=== PATIENT | male | born 1945 | race Caucasian/White ===

== ENCOUNTER 2018-08-29 10:57 | Emergency (ER) | payer OTHER, SELFPAY ==
[2018-08-29] VITALS (8 sets, daily range): BP systolic 139–185; BP diastolic 73–104; PULSE 58–69; RESP 13–20; TEMP 36.8; O2SAT 83–98; BMI 29.5
--- NOTE | 2018-08-29 11:29 | DI.RAD.S_ITS ---
PROCEDURE: XR CHEST 1V INDICATIONS: chest pain TECHNIQUE: One view of the chest was acquired. COMPARISON: None. FINDINGS: Surgical changes and devices: Status post CABG procedure.. Lungs and pleura: No pleural effusions or pneumothorax. Lungs are clear. Mediastinum: Mediastinal contours appear normal. Heart size is normal. Bones and chest wall: No suspicious bony lesions. Overlying soft tissues appear unremarkable. IMPRESSION: No acute cardiopulmonary disease process. Dictated by: Iliana Ryan MD, PhD on 08/29/2018 at 13:20 Approved by: Iliana Ryan MD, PhD on 08/29/2018 at 13:20
[2018-08-29 11:38] LABS: Add Manual Diff / Slide Review NO; Basophils Percent Auto 0.9 % (0-2); Eosinophils Percent Auto 4.6 % (2-4); Hematocrit 46.3 % (41-53); Hemoglobin 16.7 g/dL (13.5-17.5); INR 1.1 (0.9-1.3); Lymphocytes Percent Auto 23.5 % (25-40); Mean Corpuscular Hemoglobin 33.3 PG (26-34); Mean Corpuscular Volume 92.5 fL (80-100); Monocytes Percent Auto 10.4 % (3-14); Neutrophils Absolute Auto 5000 /uL (3000-5900); Neutrophils Percent Auto 60.6 % (50-75); Platelet Count 270 X10^3/uL (150-400); Prothrombin Time 11.7 SECONDS (10.1-12.7); Red Blood Cell Count 5.01 X10^6/uL (4.5-5.9); Red Cell Distribution Width 13.8 % (11.6-14.8); White Blood Cell Count 8.2 X10^3/uL (4.5-11.0)
--- NOTE | 2018-08-29 11:38 | ED.CHESTPAIN ---
HPI - Chest Pain General Chief Complaint: Chest Pain Stated Complaint: CHEST PAIN Time Seen by Provider: 08/29/18 11:22 Source: patient and family Mode of arrival: ambulatory Limitations: no limitations History of Present Illness HPI narrative: This is a 73-year-old male that comes to the emergency department with complaint of chest pain. Patient states he has been having symptoms for for 5 days. He states that it is when he is moving around. If he lays flat on the bed he does not have any symptoms but even sitting up causes some pain. Walking around or moving also causes discomfort. He states it started more in the left breast and he thought it was more muscular and sort of moved to his back and now it is in the center of his chest today. He saw a chiropractor yesterday which did not improve his symptoms. He denies any nausea or vomiting. He states he felt maybe a little short of breath but that that might also been Um diet he about the fact that he was having chest pain. Has not been continuous or clearly linked with the chest pain. He denies any worsening with exertion. He denies any diarrhea or constipation he has had indigestion. He has felt a little dizzy, no syncope or lightheadedness. It is currently not present and seems to change throughout the day. He has had history of 2 vessel CABG, he takes medication for blood pressure and cholesterol. He use to have gout but quit after stopping alcohol 8 or 9 months ago. He does not have a history of diabetes. He does not smoke tobacco. He has had his appendix as well as a cholecystectomy, a takes an aspirin 81 mg daily. He occasionally uses at double THC but does not smoke. Dr. Solorio is his PCP. Related Data Home Medications Medication Instructions Recorded Confirmed aspirin 81 mg PO BEDTIME 08/29/18 08/29/18 atorvastatin 40 mg PO BEDTIME 08/29/18 08/29/18 metoprolol succinate 50 mg PO BEDTIME 08/29/18 08/29/18 Allergies Allergy/AdvReac Type Severity Reaction Status Date / Time No Known Drug Allergies Allergy Verified 08/29/18 11:26 Review of Systems Review of Systems All systems reviewed & are unremarkable except as noted in HPI and below Constitutional Denies fatigue and Denies fever(s) ENT Ears, Nose, Mouth, and Throat: Denies change in voice, Denies nasal congestion, Denies neck pain and Denies sore throat Cardiovascular Reports chest pain, Reports chest pain with activity, Denies diaphoresis, Denies syncope, Denies rapid heart rate, Denies pedal edema, Denies irregular heart rhythm, Denies leg edema, Denies lightheadedness, Denies radiating jaw, neck or arm pain, Denies palpitations, Reports dyspnea, Denies dyspnea on exertion and Denies orthopnea Respiratory Denies chest congestion, Denies cough, Reports dyspnea, Denies dyspnea on exertion and Denies wheezing Gastrointestinal Gastrointestinal: Denies abdominal pain, Denies change in bowel habits, Denies constipation, Denies diarrhea, Denies nausea and Denies vomiting Genitourinary Denies difficulty urinating Musculoskeletal Denies neck pain Integumentary/Breasts Denies rash Neurologic Denies syncope Endocrine Denies fatigue and Denies palpitations Allergic/Immunologic Denies wheezing PFSH Medical History Dyslipidemia (Chronic) Gout (Chronic) Hypertension (Chronic) Surgical History History of cholecystectomy (Chronic) Hx of appendectomy (Chronic) S/P CABG (coronary artery bypass graft) (Chronic) Social History Smoking Status: Former smoker Exam Narrative Exam Narrative: GENERAL: Alert and oriented x three, well-nourished, well-appearing male in no acute distress. HEENT: Head normocephalic, atraumatic, EOMI, pupils reactive, face symmetric, moist mucous membranes NECK: Supple, full range of motion CARDIOVASCULAR: Regular rate and rhythm without murmurs, rubs or gallops. No pedal edema bilaterally. Unable to reproduce chest pain with palpation. RESPIRATORY: Breath sounds equal bilaterally, no wheezes rales or rhonchi. Speaks in full sentences, no accessory muscle use. Patient does not have any rash or skin color changes on his anterior chest. ABDOMEN: Soft, nontender. Normoactive bowel sounds all 4 quadrants. No guarding or rebound, rigidity, no mass : No CVA tenderness EXTREMITIES: Normal range of motion, no clubbing or edema. Neurovascularly intact NEUROLOGICAL: Cranial nerves II through XII grossly intact. Moving all extremities SKIN: Warm, dry, no petechiae, no rashes or lesions. Initial Vital Signs Initial Vital Signs: Vital Signs Temperature 98.3 F 08/29/18 11:21 Pulse Rate 69 08/29/18 11:21 Respiratory Rate 15 08/29/18 11:21 Blood Pressure 185/104 H 08/29/18 11:21 Pulse Oximetry 96 08/29/18 11:21 Scores HEART Score Heart Score history: Slightly Suspicious Heart Score EKG: Non-Specific repolarization disturbance Heart Score Age: > or = 65 years old Heart Score risk factors: > 3 risk factors or hx of atherosclerotic disease Heart Score troponin: < or = to normal limit Heart Score Total: 5 Course Orders Ordered: ED Orders 08/29/18 11:03 EKG-12 Lead Routine 08/29/18 11:12 B Type Natriuretic Peptide Stat Complete Blood Count AUTO DIFF Stat Comprehensive Metabolic Panel Stat D Dimer Stat Lipase Stat Partial Thromboplastin Time Stat Prothrombin Time INR Stat Troponin & CK Cardiac Panel Stat 08/29/18 11:29 XR chest 1V Stat 08/29/18 13:36 Education, smoking cessation ONGOING 08/29/18 14:36 Troponin & CK Cardiac Panel Q8H Aspirin (Aspirin) 325 mg PO DAILY [facility] Enoxaparin Sodium (Lovenox) 40 mg SUBCUT DAILY [facility] Sodium Chloride (Normal Saline 0.9%) 1,000 mls @ 150 mls/hr IV CONT NNAMDI Last Admin: 08/29/18 11:53 Dose: 150 mls/hr Lisinopril (Zestril) 5 mg PO DAILY [facility] Metoprolol Succinate (Toprol Xl) 50 mg PO BEDTIME NNAMDI Nitroglycerin (Nitro-Bid) 0.75 inch TOP Q8HR NNAMDI Ondansetron HCl (Zofran Odt) 4 mg PO Q8HR PRN PRN Reason: Nausea And Vomiting Discontinued Medications Aspirin (Aspirin Chew) 324 mg PO NOW ONE Stop: 08/29/18 11:30 Last Admin: 08/29/18 11:53 Dose: 324 mg Reevaluation(s) Reevaluation #1: Recheck after labs and chest xray-continues to be asymptomatic. Patient and I discussed labs and imaging findings. EKG has nonspecific changes. Consultations Consultation #1: Dr. Matthews, accepts for chest pain obs. Tele. Time: 13:34 Vital Signs - 8 hr 08/29/18 11:21 08/29/18 12:00 08/29/18 12:30 Temperature 98.3 F Pulse Rate 69 64 66 Respiratory Rate 15 20 18 Blood Pressure 185/104 H Blood Pressure [Right Arm] 150/74 H 150/83 H Pulse Oximetry 96 95 97 08/29/18 13:00 08/29/18 13:30 08/29/18 14:03 Temperature Pulse Rate 61 60 58 L Respiratory Rate 13 15 16 Blood Pressure Blood Pressure [Right Arm] 139/76 159/83 H 165/78 H Pulse Oximetry 95 83 L 97 08/29/18 14:31 08/29/18 15:00 Temperature Pulse Rate 65 59 L Respiratory Rate 14 14 Blood Pressure Blood Pressure [Right Arm] 168/84 H 159/73 H Pulse Oximetry 97 98 MDM - Chest Pain Lab Data Attestation: I reviewed the patient's lab results. Result diagrams: 08/29/18 11:12 08/29/18 11:12 Lab Results 08/29/18 08/29/18 08/29/18 Range/Units 11:12 11:12 11:12 WBC 8.2 (4.5-11.0) X10^3/uL RBC 5.01 (4.5-5.9) X10^6/uL Hgb 16.7 (13.5-17.5) g/dL Hct 46.3 (41-53) % MCV 92.5 (80-100) fL MCH 33.3 (26-34) PG MCHC 36.0 (30-36) % RDW 13.8 (11.6-14.8) % Plt Count 270 (150-400) X10^3/uL Neut % (Auto) 60.6 (50-75) % Lymph % (Auto) 23.5 L (25-40) % [place] % (Auto) 10.4 (3-14) % Eos % (Auto) 4.6 H (2-4) % Baso % (Auto) 0.9 (0-2) % Neut # (Auto) 5000 (5268-4304) /uL PT 11.7 (10.1-12.7) SECONDS INR 1.1 (0.9-1.3) APTT 30 (26.4-36.2) SECONDS D-Dimer < 200 (<230) ng/mL Sodium 144 (137-145) mmol/L Potassium 4.1 (3.4-5.1) mmol/L Chloride 107 (98-107) mmol/L Carbon Dioxide 25 (22-32) mmol/L BUN 12 (9-20) mg/dL Creatinine 0.90 (0.66-1.25) mg/dL Estimated GFR > 60.0 (>60) mL/min BUN/Creatinine Ratio 13.3 (6-22) Glucose 109 (80-110) mg/dL Calcium 9.4 (8.4-10.2) mg/dL Total Bilirubin 1.1 (0.2-1.3) mg/dL AST 32 (17-59) IU/L ALT 43 (21-72) IU/L Alkaline Phosphatase 64 (38-126) U/L Total Creatine Kinase 54 L (55-170) U/L CK-MB (CK-2) TNP CK-MB (CK-2) Rel Index TNP Troponin I < 0.012 (0.01-0.034) ng/mL B-Natriuretic Peptide < 29.4 (<100) Total Protein 7.3 (6.3-8.2) g/dL Albumin 4.5 (3.5-5.0) g/dL Globulin 2.8 (1.7-4.1) g/dL Albumin/Globulin Ratio 1.6 (1.0-2.8) Lipase 77 (23-300) U/L 08/29/18 Range/Units 14:36 WBC (4.5-11.0) X10^3/uL RBC (4.5-5.9) X10^6/uL Hgb (13.5-17.5) g/dL Hct (41-53) % MCV (80-100) fL MCH (26-34) PG MCHC (30-36) % RDW (11.6-14.8) % Plt Count (150-400) X10^3/uL Neut % (Auto) (50-75) % Lymph % (Auto) (25-40) % [place] % (Auto) (3-14) % Eos % (Auto) (2-4) % Baso % (Auto) (0-2) % Neut # (Auto) (4064-1156) /uL PT (10.1-12.7) SECONDS INR (0.9-1.3) APTT (26.4-36.2) SECONDS D-Dimer (<230) ng/mL Sodium (137-145) mmol/L Potassium (3.4-5.1) mmol/L Chloride (98-107) mmol/L Carbon Dioxide (22-32) mmol/L BUN (9-20) mg/dL Creatinine (0.66-1.25) mg/dL Estimated GFR (>60) mL/min BUN/Creatinine Ratio (6-22) Glucose (80-110) mg/dL Calcium (8.4-10.2) mg/dL Total Bilirubin (0.2-1.3) mg/dL AST (17-59) IU/L ALT (21-72) IU/L Alkaline Phosphatase (38-126) U/L Total Creatine Kinase 48 L (55-170) U/L CK-MB (CK-2) TNP CK-MB (CK-2) Rel Index TNP Troponin I < 0.012 (0.01-0.034) ng/mL B-Natriuretic Peptide (<100) Total Protein (6.3-8.2) g/dL Albumin (3.5-5.0) g/dL Globulin (1.7-4.1) g/dL Albumin/Globulin Ratio (1.0-2.8) Lipase (23-300) U/L Urine Dip Bedside Urine Glucose Negative Bedside Urine Bilirubin - Negative Bedside Urine Ketone - Negative Urine Specific [place] 1.015 Bedside Urine Occult Blood - Negative Bedside Urine pH 6.0 Bedside Urine Protein - Negative Bedside Urine Urobilinogen - Negative Bedside Urine Nitrite - Negative Bedside Urine Leukocytes - Negative Esterase Imaging Data Chest x-ray: Radiologist's impression: [address] [id number] XRay Report Signed Patient: Javan Antoine BMR#: [id number] : 5Acct:[id number] Age/Sex: 73 / MDate of Service: 08/29/18 Loc: ED Accession Number: [id number] Procedure: XR chest 1V Ordering Provider: Britta Ndiaye D.O. PROCEDURE: XR CHEST 1V INDICATIONS: chest pain TECHNIQUE: One view of the chest was acquired. COMPARISON: None. FINDINGS: Surgical changes and devices: Status post CABG procedure.. Lungs and pleura: No pleural effusions or pneumothorax. Lungs are clear. Mediastinum: Mediastinal contours appear normal. Heart size is normal. Bones and chest wall: No suspicious bony lesions. Overlying soft tissues appear unremarkable. IMPRESSION: No acute cardiopulmonary disease process. Dictated by: Iliana Ryan MD, PhD on 08/29/2018 at 13:20 Approved by: Iliana Ryan MD, PhD on 08/29/2018 at 13:20 ECG Data Attestation: I personally reviewed and interpreted this ECG as follows: Prior ECG tracings: not available for review Interpretation: Sinus rhythm with a rate of 63, [place] 203, QRS of 107 and a QTC of 385. Patient has Q-waves [address] change. No ST elevation is appreciated. No prior EKGs are available EKG #2, sinus bradycardia with a sinus arrhythmia with a rate of 59, P are of 205, QRS of 105 and QTC of 407. Q-wave in [address] change consistent with prior EKG from this morning. MDM Narrative Medical decision making narrative: After further discussion with patient his chest pain seems to present after walking around the house for a period of time or exerting himself. It does not occur if he is moving his arms or when calling his chest. With his cardiac history it does sound somewhat consistent with stable angina. If he rests it resolves, but it does not seem to, if he is resting on the bed or is not participating in any activity. Spoke with Dr. Matthews about the chest pain observation for this patient and he accepts with plan for a [address] Matthews, updated. He also recommends f/u with PCP. And potentially lisinopril and imdur for home. Patient and I discussed that I don't recommend return home, he is open to doing 2nd troponin prior to d/c and will call pcp today to set up stress test at beginning of the week. Discussed risks/benefits. Repeat troponin is negative. Patient will call pcp today to set up follow up Saturday. Recommended to return to ED if recurrent symptoms. We also discussed possible rx for home for better BP control and nitro but patient defers. Discharge Plan Departure Patient Disposition: Home Clinical Impression: Chest pain Discharge Date/Time: 08/29/18 15:37 Interventions: ED Discharge Assessment Last Done: 08/29/18 15:37 Instructions: DI for Chest Pain Activity Restrictions/Additional Instructions: I do recommend observation for further evaluation but since your returning home make sure that you follow up for re-evaluation and stress test on Saturday. Call today to set up follow up with your primary care physician. Your blood pressure was also elevated here in the emergency department today, also discussed this with your primary care physician. Continue your aspirin daily. Return to the emergency department for worsening symptoms, new chest pain, new shortness of breath, new weakness or dizziness or passing out or other new or concerning symptoms. Prescriptions: No Action aspirin 81 mg Tablet,Delayed Release (Dr/Ec) 81 mg PO BEDTIME RF: 0 metoprolol succinate 50 MG tablet extended release 24 hr 50 mg PO BEDTIME RF: 0 atorvastatin 40 MG tablet 40 mg PO BEDTIME RF: 0 Referrals: Laurence Brenner PA-C [Primary Care Provider] - Jon Solorio MD [Non-Staff] -
[2018-08-29 11:41] LABS: PTT Partial Thromboplastin Tim 30 SECONDS (26.4-36.2)
[2018-08-29 11:43] LABS: Alanine Aminotransferase 43 IU/L (21-72); Albumin 4.5 g/dL (3.5-5.0); Albumin Globulin Ratio 1.6 (1.0-2.8); Alkaline Phosphatase 64 U/L (38-126); Aspartate Aminotransferase 32 IU/L (17-59); BUN Creatinine Ratio 13.3 (6-22); Bilirubin Total 1.1 mg/dL (0.2-1.3); Blood Urea Nitrogen 12 mg/dL (9-20); Calcium 9.4 mg/dL (8.4-10.2); Carbon Dioxide 25 mmol/L (22-32); Chloride 107 mmol/L (98-107); Creatine Kinase 54 U/L (55-170); Estimated Glomerular Filt Rate > 60.0 mL/min (>60); Globulin 2.8 g/dL (1.7-4.1); Glucose 109 mg/dL (80-110); HEMOLYSIS < 15 (0-50); Lipase 77 U/L (23-300); Potassium 4.1 mmol/L (3.4-5.1); Sodium 144 mmol/L (137-145); Total Protein 7.3 g/dL (6.3-8.2)
--- NOTE | 2018-08-29 11:44 | ED_ITS ---
HPI - Chest Pain General Chief Complaint: Chest Pain Stated Complaint: CHEST PAIN Time Seen by Provider: 08/29/18 11:22 Source: patient and family Mode of arrival: ambulatory Limitations: no limitations History of Present Illness HPI narrative: This is a 73-year-old male that comes to the emergency department with complaint of chest pain. Patient states he has been having symptoms for for 5 days. He states that it is when he is moving around. If he lays flat on the bed he does not have any symptoms but even sitting up causes some pain. Walking around or moving also causes discomfort. He states it started more in the left breast and he thought it was more muscular and sort of moved to his back and now it is in the center of his chest today. He saw a chiropractor yesterday which did not improve his symptoms. He denies any nausea or vomiting. He states he felt maybe a little short of breath but that that might also been Um diet he about the fact that he was having chest pain. Has not been continuous or clearly linked with the chest pain. He denies any worsening with exertion. He denies any diarrhea or constipation he has had indigestion. He has felt a little dizzy, no syncope or lightheadedness. It is currently not present and seems to change throughout the day. He has had history of 2 vessel CABG, he takes medication for blood pressure and cholesterol. He use to have gout but quit after stopping alcohol 8 or 9 months ago. He does not have a history of diabetes. He does not smoke tobacco. He has had his appendix as well as a cholecystectomy, a takes an aspirin 81 mg daily. He occasionally uses at double THC but does not smoke. Dr. Solorio is his PCP. Related Data Home Medications Medication Instructions Recorded Confirmed aspirin 81 mg PO BEDTIME 08/29/18 08/29/18 atorvastatin 40 mg PO BEDTIME 08/29/18 08/29/18 metoprolol succinate 50 mg PO BEDTIME 08/29/18 08/29/18 Allergies Allergy/AdvReac Type Severity Reaction Status Date / Time No Known Drug Allergies Allergy Verified 08/29/18 11:26 Review of Systems Review of Systems All systems reviewed & are unremarkable except as noted in HPI and below Constitutional Denies fatigue and Denies fever(s) ENT Ears, Nose, Mouth, and Throat: Denies change in voice, Denies nasal congestion, Denies neck pain and Denies sore throat Cardiovascular Reports chest pain, Reports chest pain with activity, Denies diaphoresis, Denies syncope, Denies rapid heart rate, Denies pedal edema, Denies irregular heart rhythm, Denies leg edema, Denies lightheadedness, Denies radiating jaw, neck or arm pain, Denies palpitations, Reports dyspnea, Denies dyspnea on exertion and Denies orthopnea Respiratory Denies chest congestion, Denies cough, Reports dyspnea, Denies dyspnea on exertion and Denies wheezing Gastrointestinal Gastrointestinal: Denies abdominal pain, Denies change in bowel habits, Denies constipation, Denies diarrhea, Denies nausea and Denies vomiting Genitourinary Denies difficulty urinating Musculoskeletal Denies neck pain Integumentary/Breasts Denies rash Neurologic Denies syncope Endocrine Denies fatigue and Denies palpitations Allergic/Immunologic Denies wheezing PFSH Medical History Dyslipidemia (Chronic) Gout (Chronic) Hypertension (Chronic) Surgical History History of cholecystectomy (Chronic) Hx of appendectomy (Chronic) S/P CABG (coronary artery bypass graft) (Chronic) Social History Smoking Status: Former smoker Exam Narrative Exam Narrative: GENERAL: Alert and oriented x three, well-nourished, well- appearing male in no acute distress. HEENT: Head normocephalic, atraumatic, EOMI, pupils reactive, face symmetric, moist mucous membranes NECK: Supple, full range of motion CARDIOVASCULAR: Regular rate and rhythm without murmurs, rubs or gallops. No pedal edema bilaterally. Unable to reproduce chest pain with palpation. RESPIRATORY: Breath sounds equal bilaterally, no wheezes rales or rhonchi. Speaks in full sentences, no accessory muscle use. Patient does not have any rash or skin color changes on his anterior chest. ABDOMEN: Soft, nontender. Normoactive bowel sounds all 4 quadrants. No guarding or rebound, rigidity, no mass : No CVA tenderness EXTREMITIES: Normal range of motion, no clubbing or edema. Neurovascularly intact NEUROLOGICAL: Cranial nerves II through XII grossly intact. Moving all extremities SKIN: Warm, dry, no petechiae, no rashes or lesions. Initial Vital Signs Initial Vital Signs: Vital Signs Temperature 98.3 F 08/29/18 11:21 Pulse Rate 69 08/29/18 11:21 Respiratory Rate 15 08/29/18 11:21 Blood Pressure 185/104 H 08/29/18 11:21 Pulse Oximetry 96 08/29/18 11:21 Scores HEART Score Heart Score history: Slightly Suspicious Heart Score EKG: Non-Specific repolarization disturbance Heart Score Age: > or = 65 years old Heart Score risk factors: > 3 risk factors or hx of atherosclerotic disease Heart Score troponin: < or = to normal limit Heart Score Total: 5 Course Orders Ordered: ED Orders 08/29/18 11:03 EKG-12 Lead Routine 08/29/18 11:12 B Type Natriuretic Peptide Stat Complete Blood Count AUTO DIFF Stat Comprehensive Metabolic Panel Stat D Dimer Stat Lipase Stat Partial Thromboplastin Time Stat Prothrombin Time INR Stat Troponin & CK Cardiac Panel Stat 08/29/18 11:29 XR chest 1V Stat 08/29/18 13:36 Education, smoking cessation ONGOING 08/29/18 14:36 Troponin & CK Cardiac Panel Q8H Aspirin (Aspirin) 325 mg PO DAILY [facility] Enoxaparin Sodium (Lovenox) 40 mg SUBCUT DAILY [facility] Sodium Chloride (Normal Saline 0.9%) 1,000 mls @ 150 mls/hr IV CONT NNAMDI Last Admin: 08/29/18 11:53 Dose: 150 mls/hr Lisinopril (Zestril) 5 mg PO DAILY [facility] Metoprolol Succinate (Toprol Xl) 50 mg PO BEDTIME NNAMDI Nitroglycerin (Nitro-Bid) 0.75 inch TOP Q8HR NNAMDI Ondansetron HCl (Zofran Odt) 4 mg PO Q8HR PRN PRN Reason: Nausea And Vomiting Discontinued Medications Aspirin (Aspirin Chew) 324 mg PO NOW ONE Stop: 08/29/18 11:30 Last Admin: 08/29/18 11:53 Dose: 324 mg Reevaluation(s) Reevaluation #1: Recheck after labs and chest xray-continues to be asymptomatic. Patient and I discussed labs and imaging findings. EKG has nonspecific changes. Consultations Consultation #1: Dr. Matthews, accepts for chest pain obs. Tele. Time: 13:34 Vital Signs - 8 hr 08/29/18 11:21 08/29/18 12:00 08/29/18 12:30 Temperature 98.3 F Pulse Rate 69 64 66 Respiratory Rate 15 20 18 Blood Pressure 185/104 H Blood Pressure [Right Arm] 150/74 H 150/83 H Pulse Oximetry 96 95 97 08/29/18 13:00 08/29/18 13:30 08/29/18 14:03 Temperature Pulse Rate 61 60 58 L Respiratory Rate 13 15 16 Blood Pressure Blood Pressure [Right Arm] 139/76 159/83 H 165/78 H Pulse Oximetry 95 83 L 97 08/29/18 14:31 08/29/18 15:00 Temperature Pulse Rate 65 59 L Respiratory Rate 14 14 Blood Pressure Blood Pressure [Right Arm] 168/84 H 159/73 H Pulse Oximetry 97 98 MDM - Chest Pain Lab Data Attestation: I reviewed the patient's lab results. Result diagrams: 08/29/18 11:12 08/29/18 11:12 Lab Results 08/29/18 08/29/18 08/29/18 Range/Units 11:12 11:12 11:12 WBC 8.2 (4.5-11.0) X10^3/uL RBC 5.01 (4.5-5.9) X10^6/uL Hgb 16.7 (13.5-17.5) g/dL Hct 46.3 (41-53) % MCV 92.5 (80-100) fL MCH 33.3 (26-34) PG MCHC 36.0 (30-36) % RDW 13.8 (11.6-14.8) % Plt Count 270 (150-400) X10^3/uL Neut % (Auto) 60.6 (50-75) % Lymph % (Auto) 23.5 L (25-40) % [place] % (Auto) 10.4 (3-14) % Eos % (Auto) 4.6 H (2-4) % Baso % (Auto) 0.9 (0-2) % Neut # (Auto) 5000 (9362-1064) /uL PT 11.7 (10.1-12.7) SECONDS INR 1.1 (0.9-1.3) APTT 30 (26.4-36.2) SECONDS D-Dimer < 200 (<230) ng/mL Sodium 144 (137-145) mmol/L Potassium 4.1 (3.4-5.1) mmol/L Chloride 107 (98-107) mmol/L Carbon Dioxide 25 (22-32) mmol/L BUN 12 (9-20) mg/dL Creatinine 0.90 (0.66-1.25) mg/dL Estimated GFR > 60.0 (>60) mL/min BUN/Creatinine Ratio 13.3 (6-22) Glucose 109 (80-110) mg/dL Calcium 9.4 (8.4-10.2) mg/dL Total Bilirubin 1.1 (0.2-1.3) mg/dL AST 32 (17-59) IU/L ALT 43 (21-72) IU/L Alkaline Phosphatase 64 (38-126) U/L Total Creatine Kinase 54 L (55-170) U/L CK-MB (CK-2) TNP CK-MB (CK-2) Rel Index TNP Troponin I < 0.012 (0.01-0.034) ng/mL B-Natriuretic Peptide < 29.4 (<100) Total Protein 7.3 (6.3-8.2) g/dL Albumin 4.5 (3.5-5.0) g/dL Globulin 2.8 (1.7-4.1) g/dL Albumin/Globulin Ratio 1.6 (1.0-2.8) Lipase 77 (23-300) U/L 08/29/18 Range/Units 14:36 WBC (4.5-11.0) X10^3/uL RBC (4.5-5.9) X10^6/uL Hgb (13.5-17.5) g/dL Hct (41-53) % MCV (80-100) fL MCH (26-34) PG MCHC (30-36) % RDW (11.6-14.8) % Plt Count (150-400) X10^3/uL Neut % (Auto) (50-75) % Lymph % (Auto) (25-40) % [place] % (Auto) (3-14) % Eos % (Auto) (2-4) % Baso % (Auto) (0-2) % Neut # (Auto) (5547-9247) /uL PT (10.1-12.7) SECONDS INR (0.9-1.3) APTT (26.4-36.2) SECONDS D-Dimer (<230) ng/mL Sodium (137-145) mmol/L Potassium (3.4-5.1) mmol/L Chloride (98-107) mmol/L Carbon Dioxide (22-32) mmol/L BUN (9-20) mg/dL Creatinine (0.66-1.25) mg/dL Estimated GFR (>60) mL/min BUN/Creatinine Ratio (6-22) Glucose (80-110) mg/dL Calcium (8.4-10.2) mg/dL Total Bilirubin (0.2-1.3) mg/dL AST (17-59) IU/L ALT (21-72) IU/L Alkaline Phosphatase (38-126) U/L Total Creatine Kinase 48 L (55-170) U/L CK-MB (CK-2) TNP CK-MB (CK-2) Rel Index TNP Troponin I < 0.012 (0.01-0.034) ng/mL B-Natriuretic Peptide (<100) Total Protein (6.3-8.2) g/dL Albumin (3.5-5.0) g/dL Globulin (1.7-4.1) g/dL Albumin/Globulin Ratio (1.0-2.8) Lipase (23-300) U/L Urine Dip Bedside Urine Glucose Negative Bedside Urine Bilirubin - Negative Bedside Urine Ketone - Negative Urine Specific [place] 1.015 Bedside Urine Occult Blood - Negative Bedside Urine pH 6.0 Bedside Urine Protein - Negative Bedside Urine Urobilinogen - Negative Bedside Urine Nitrite - Negative Bedside Urine Leukocytes - Negative Esterase Imaging Data Chest x-ray: Radiologist's impression: [address] [address] XRay Report Signed Patient: Javan Antoine BMR#: [id number] : 5Acct:[id number] Age/Sex: 73 / MDate of Service: 08/29/18 Loc: ED Accession Number: [id number] Procedure: XR chest 1V Ordering Provider: Britta Ndiaye D.O. PROCEDURE: XR CHEST 1V INDICATIONS: chest pain TECHNIQUE: One view of the chest was acquired. COMPARISON: None. FINDINGS: Surgical changes and devices: Status post CABG procedure.. Lungs and pleura: No pleural effusions or pneumothorax. Lungs are clear. Mediastinum: Mediastinal contours appear normal. Heart size is normal. Bones and chest wall: No suspicious bony lesions. Overlying soft tissues appear unremarkable. IMPRESSION: No acute cardiopulmonary disease process. Dictated by: Iliana Ryan MD, PhD on 08/29/2018 at 13:20 Approved by: Iliana Ryan MD, PhD on 08/29/2018 at 13:20 ECG Data Attestation: I personally reviewed and interpreted this ECG as follows: Prior ECG tracings: not available for review Interpretation: Sinus rhythm with a rate of 63, [place] 203, QRS of 107 and a QTC of 385. Patient has Q-waves [address] change. No ST elevation is appreciated. No prior EKGs are available EKG #2, sinus bradycardia with a sinus arrhythmia with a rate of 59, P are of 205, QRS of 105 and QTC of 407. Q-wave in [address] change consistent with prior EKG from this morning. MDM Narrative Medical decision making narrative: After further discussion with patient his chest pain seems to present after walking around the house for a period of time or exerting himself. It does not occur if he is moving his arms or when calling his chest. With his cardiac history it does sound somewhat consistent with stable angina. If he rests it resolves, but it does not seem to, if he is resting on the bed or is not participating in any activity. Spoke with Dr. Matthews about the chest pain observation for this patient and he accepts with plan for a [address] Matthews, updated. He also recommends f/u with PCP. And potentially lisinopril and imdur for home. Patient and I discussed that I don't recommend return home, he is open to doing 2nd troponin prior to d/c and will call pcp today to set up stress test at beginning of the week. Discussed risks/ benefits. Repeat troponin is negative. Patient will call pcp today to set up follow up Saturday. Recommended to return to ED if recurrent symptoms. We also discussed possible rx for home for better BP control and nitro but patient defers. Discharge Plan Departure Patient Disposition: Home Clinical Impression: Chest pain Discharge Date/Time: 08/29/18 15:37 Interventions: ED Discharge Assessment Last Done: 08/29/18 15:37 Instructions: DI for Chest Pain Activity Restrictions/Additional Instructions: I do recommend observation for further evaluation but since your returning home make sure that you follow up for re-evaluation and stress test on Saturday. Call today to set up follow up with your primary care physician. Your blood pressure was also elevated here in the emergency department today, also discussed this with your primary care physician. Continue your aspirin daily. Return to the emergency department for worsening symptoms, new chest pain, new shortness of breath, new weakness or dizziness or passing out or other new or concerning symptoms. Prescriptions: No Action aspirin 81 mg Tablet,Delayed Release (Dr/Ec) 81 mg PO BEDTIME RF: 0 metoprolol succinate 50 MG tablet extended release 24 hr 50 mg PO BEDTIME RF: 0 atorvastatin 40 MG tablet 40 mg PO BEDTIME RF: 0 Referrals: Laurence Brenner PA-C [Primary Care Provider] - Jon Solorio MD [Non-Staff] -
[2018-08-29 11:46] LABS: D Dimer < 200 ng/mL (<230)
[2018-08-29] MEDS: ASPIRIN 81 MG TAB 324 MG PO (11:53)
[2018-08-29] MEDS: SODIUM CHLORIDE 0.9% 1,000 ML 150 ML IV (11:53)
[2018-08-29 11:55] LABS: Troponin I < 0.012 ng/mL (0.01-0.034)
[2018-08-29 11:56] LABS: B Type Natriuretic Peptide < 29.4 (<100)
[2018-08-29 14:55] LABS: Creatine Kinase 48 U/L (55-170)
[2018-08-29 15:07] LABS: Troponin I < 0.012 ng/mL (0.01-0.034)
== END 2018-08-29 15:37 | disposition home or self-care (01) ==
LOC: ED 13:32 → AC 13:35
PROVIDERS: Internal Medicine; Emergency Provider Emergency Medicine; Family Provider Physician Assistant; PCP Physician Assistant
DX: R07.89 Other chest pain (principal)
CPT/HCPCS: 36415; 36591; 71045; 80053; 81003; 82550; 83690; 83880; 84484; 85025; 85379; 85610; 85730; 93005; 99284; 99285